=== PATIENT | female | born 1980 | race Caucasian/White ===

== ENCOUNTER 2020-06-15 19:31 | Emergency (ER) | payer OTHER ==
[~2020-06-15] VITALS: Ht 172.7 cm; Wt 98.0 kg
[2020-06-15 19:31] VITALS: BP 153/97
[2020-06-15] MEDS ORDERED: [UNRECOGNIZED DRUG - CODE] TP (20:18)
--- NOTE | 2020-06-15 20:19 | PHYS DOC ---
Past History Past Medical History: Depression, Diverticulitis Past Surgical History: Appendectomy, Cholecystectomy Alcohol Use: None Adult General Chief Complaint Chief Complaint: SKIN PROBLEM HPI HPI Patient is a 40-year-old female who presents via POV for skin problems. Patient reports noticing generalized pustules over entire portion of her body sparing her face that have worsened in past 48 hours. Nothing known makes better or worse. Patient reports pustules pop with serosanguineous drainage, reports they are mildly pruritic with pain on palpation. Reports spending prolonged time in on's hot tub approximately 3 days ago. No history of MRSA infection. Has recent history of hospital admission for diverticulosis requiring prolonged IV ciprofloxacin and Flagyl use. 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 See HPI for pertinent positives and negative responses, other kim all other systems are negative, non-pertinent or non-contributory Allergies Allergies Allergies Coded Allergies Type Severity Reaction Last Updated Verified Penicillins Allergy Severe Rash 06/15/20 Yes haloperidol Allergy Severe Swelling 06/15/20 Yes meperidine Allergy Severe Rash 06/15/20 Yes morphine Allergy Severe Rash 06/15/20 Yes prochlorperazine Allergy Unknown Swelling 06/15/20 Yes Physical Exam Physical Exam Constitutional: Well developed, well nourished, no acute distress, non-toxic appearance. HENT: Normocephalic, atraumatic, bilateral external ears normal, oropharynx moist, no oral exudates, nose normal. Eyes: PERRLA, EOMI, conjunctiva normal, no discharge. Neck: Normal range of motion, no tenderness, supple, no stridor. Cardiovascular: Heart rate regular, sinus rhythm, no murmurs rubs or gallops Lungs & Thorax: Bilateral breath sounds clear to auscultation Abdomen: Bowel sounds normal, soft, no tenderness, no masses, no pulsatile mas ses. Nonsurgical abdomen, no peritoneal signs Skin: Warm, dry, numerous pustules on erythematous base located around hair follicles in generalized distribution on trunk and upper extremity with mild involvement of bilateral lower extremities, pruritic and moderately tender to touch Back: No tenderness, no CVA tenderness. Extremities: No tenderness, no cyanosis, no clubbing, ROM intact, no edema. Neurologic: Alert and oriented X 3, grossly normal motor & sensory function, no focal deficits noted. Psychologic: Affect normal, judgement normal, mood normal. Current Patient Data Vital Signs Vital Signs Date Time Temp Pulse Resp B/P (MAP) Pulse Ox O2 Delivery O2 Flow Rate FiO2 06/15/20 19:31 97.9 88 18 153/97 (115) 97 Room Air EKG EKG [] Radiology/Procedures Radiology/Procedures [] Heart Score HEART Score for Chest Pain: HEART Score for Chest Pain Response (Comments) Value History Slighlty/Non-Suspicious 0 Age < 45 0 Risk Factors 1 or 2 Risk Factors 1 Total 1 Risk Factors: Risk Factors: DM, Current or recent (<one month) smoker, HTN, HLP, family history of CAD, obesity. Risk Scores: Risk Factors: DM, Current or recent (<one month) smoker, HTN, HLP, family hist ory of CAD, obesity. Course & Med Decision Making Course & Med Decision Making Ambulatory well-appearing patient seen on arrival ABCs nonconcerning Comprehensive history and physical exam obtained, discussed most likely salma gnosis of hot tub folliculitis Discussed given superficial nature, I recommended continued good hygiene and antibacterial soap I discussed there might be potential need for p.o. antibiotics if this conditions worsens. I reiterated need for close outpatient follow-up, patient has good coverage by her PCP and can be seen within upcoming 10 days Strict return precautions were discussed with good understanding by patient, all questions and concerns addressed prior to ER departure in stable condition Dragon Disclaimer Dragon Disclaimer This electronic medical record was generated, in whole or in part, using a voice recognition dictation system. Departure Departure: Impression: Primary Impression: Folliculitis Disposition: 01 DC HOME SELF CARE/HOMELESS Condition: STABLE Referrals: CORINE OAKLEY MD (PCP) Patient Instructions: Folliculitis Scripts Triclosan (ANTIBACTERIAL LIQUID SOAP) 332 Ml Liquid 332 ML TP DAILY for FOLLICULITIS for 14 Days, #1 LIQUID Prov: MARKO FRANCIS DO 06/15/20 MARKO FRANICS DO Jun 15, 2020 20:19
== END 2020-06-15 20:35 | disposition home or self-care (01) ==
LOC: ER 19:31
DX: L66.4 Folliculitis ulerythematosa reticulata (principal); Z88.5 Allergy status to narcotic agent; Z88.0 Allergy status to penicillin; Z88.8 Allergy status to other drugs, medicaments and biological substances
CPT/HCPCS: 99281; 99282